=== PATIENT | female | born 1980 | race Caucasian/White ===

== ENCOUNTER → 2021-06-15 10:19 | Outpatient (BNVA) | payer SELFPAY | PROVIDERS: Family Provider Nurse Practitioner; PCP Nurse Practitioner; Visit Provider Dermatology | DX: Z01.89 Encounter for other specified special examinations (principal) ==

== ENCOUNTER → 2024-01-03 09:20 | Outpatient (BNVA) | payer BC, SELFPAY | PROVIDERS: Family Provider Nurse Practitioner; PCP Nurse Practitioner; Visit Provider Nurse Practitioner | DX: I10 Essential (primary) hypertension (principal); E03.8 Other specified hypothyroidism | CPT/HCPCS: 80053; 83540; 84443; 85025 ==

== ENCOUNTER → 2024-04-15 11:33 | Outpatient (BNVA) | payer BC, SELFPAY | PROVIDERS: Family Provider Nurse Practitioner; PCP Nurse Practitioner; Visit Provider Nurse Practitioner | DX: I10 Essential (primary) hypertension (principal); E61.1 Iron deficiency | CPT/HCPCS: 80053; 80061; 83540; 85025 ==

== ENCOUNTER 2024-05-03 10:49 | Outpatient (CLI) | payer BC, MEDICAID, SELFPAY ==
--- NOTE | 2024-05-03 11:00 | US_ITS ---
WS: [id number] US pelv w/transvag [id number] HISTORY: N93.8 - Other specified abnormal uterine and vaginal blee... COMPARISON: None available. Uterus: 9.3 cm x 4.8 cm x 4.8 cm. Normal size anteverted uterus. No fibroid or mass. Endometrium: 1.1 cm. Normal size endometrium. No mass identified. Right ovary: 3.4 cm x 3.0 cm x 3.7 cm. Normal size and vascularity, no cystic or solid masses. Slight ly enlarged ovary. Small follicles. Left ovary: 3.6 cm x 1.9 cm x 2.1 cm. Normal size and vascularity, no cystic or solid masses. No free fluid in the cul-de-sac. US/US pelv w/transvag [id number] IMPRESSION: 1. Normal endometrium. No mass identified. 2. Normal size uterus. 3. No ovarian cyst or solid mass.
== END 2024-05-03 10:50 | disposition home or self-care (01) ==
PROVIDERS: Family Provider Nurse Practitioner; PCP Nurse Practitioner; Visit Provider Nurse Practitioner
DX: N93.8 Other specified abnormal uterine and vaginal bleeding (principal)
CPT/HCPCS: 76830; 76856

== ENCOUNTER → 2024-10-31 13:54 | Outpatient (BNVA) | payer SELFPAY | PROVIDERS: Family Provider Nurse Practitioner; PCP Nurse Practitioner; Visit Provider Nurse Practitioner | DX: E03.8 Other specified hypothyroidism (principal); E55.9 Vitamin D deficiency, unspecified | CPT/HCPCS: 80053; 82306; 83540; 84443; 85025 ==